=== PATIENT | female | born 1995 | race Caucasian/White ===

== ENCOUNTER 2019-12-18 19:22 | Outpatient (CLI) | payer BC ==
--- NOTE | 2019-12-19 11:45 | Ultrasound Report ---
Reason: SUPERVISION OF NORMAL , SECOND TRIMESTER Procedure Date: 12/18/2019 Accession Number: [id number] / [id number] Procedure: US - OB 14+ Weeks CPT Code: Final Report FULL RESULT: EXAM: LIMITED OBSTETRICAL ULTRASOUND EARLY SECOND TRIMESTER EXAM DATE: 12/18/2019 08:30 PM. CLINICAL HISTORY: SUPERVISION OF NORMAL , SECOND TRIMESTER. COMPARISON: None. TECHNIQUE: Real-time sonographic evaluation of the fetus performed by the sanding machine operator or tender. Multiple customer retention representative static images were saved for review. DATING: Established EGA 16 weeks 1 day with ANA 06/02/2020 based on LMP. EGA 16 weeks 4 days with ANA 05/30/2020 based on the current ultrasound. GENERAL EVALUATION Maldonado . Cardiac activity: 158 bpm. movement: Visualized. Presentation: Variable Placenta: Anterior position. No evidence for previa. Amniotic fluid: Normal. PAYTON 13.1. MVP 4 cm. BIOMETRY Bi-Parietal Diameter (BPD): 3.4 cm, 16 weeks 4 days Head Circumference (HC): 13.0 cm, 16 weeks 5 days Abdominal Circumference (AC): 11.0 cm, 16 weeks 6 days Femur Length (FL): 2.1 cm, 16 weeks 2 days Estimated Weight: 163 g, 73.7th percentile for 16 weeks 1 day. ANATOMY Grossly unremarkable visualized anatomy. MATERNAL STRUCTURES Uterus: Unremarkable. [place] contraction. Cervix: Long and closed. About 4 cm. Right ovary/adnexa: About 1.9 x 2.5 x 1.5 cm. Suboptimally visualized, but grossly negative. Left ovary/adnexa: 2.2 x 1.5 x 2.2 cm. Unremarkable. Free fluid: None. IMPRESSION: 1. Maldonado live intrauterine with gestational age 16 weeks 1 day based on LMP. 2. size is within expected limits for assigned dating. 3. Unremarkable study. Note: Detailed anatomic survey at 18-22 weeks is recommended for all fetuses evaluated prior to 18 weeks, as some structural abnormalities may be inapparent at earlier gestational ages. RADIA
== END 2019-12-18 19:23 | disposition home or self-care (01) ==
LOC: DI 19:22
PROVIDERS: ATTEND Obstetrics & Gynecology
DX: Z34.92 Encounter for supervision of normal pregnancy, unspecified, second trimester (principal)
CPT/HCPCS: 76805

== ENCOUNTER 2019-12-26 16:03 | Outpatient (CLI) | payer BC ==
[2019-12-26 16:25] LABS: BASOPHILS % (AUTO) 0.3 %; EOSINOPHILS # (AUTO) 0.1 10^3/uL (0.0-0.7); EOSINOPHILS % (AUTO) 0.8 %; HGB - HEMOGLOBIN 12.6 g/dL (12.0-16.0); LYMPHOCYTES # (AUTO) 2.5 10^3/uL (1.5-3.5); LYMPHOCYTES % (AUTO) 21.4 %; MEAN CORPUSCULAR HEMOGLOBIN 29.8 pg (27.0-31.0); MEAN CORPUSCULAR HGB CONC 32.3 g/dL (32.0-36.0); MEAN CORPUSCULAR VOLUME 92.2 fL (81.0-99.0); MEAN PLATELET VOLUME 10.6 fL (7.9-10.8); MONOCYTES # (AUTO) 0.7 10^3/uL (0.0-1.0); MONOCYTES % (AUTO) 5.6 %; NEUTROPHILS # (AUTO) 8.2 10^3/uL (1.5-6.6); NEUTROPHILS % (AUTO) 71.3 %; PLT - PLATELET COUNT 229 10^3/uL (130-450); RED BLOOD COUNT 4.23 10^6/uL (4.20-5.40); RED CELL DISTRIBUTION WIDTH 12.9 % (12.0-15.0); WHITE BLOOD COUNT 11.5 x10^3/uL (4.8-10.8)
[2019-12-27 11:34] LABS: HIV AG/AB 4TH GEN NON-REACTIVE (NON-REACTIVE)
[2019-12-27 11:47] LABS: HEPATITIS B SURFACE ANTIGEN NON-REACTIVE (NON-REACTIVE)
[2019-12-27 11:49] LABS: HEPATITIS C ANTIBODY NON-REACTIVE (NON-REACTIVE)
== END 2019-12-26 16:04 | disposition home or self-care (01) ==
LOC: LAB 16:03
PROVIDERS: ATTEND Obstetrics & Gynecology
DX: Z32.01 Encounter for pregnancy test, result positive (principal)
CPT/HCPCS: 36415; 81599; 85025; 86592; 86762; 86803; 86850; 86900; 86901; 87340; 87389

== ENCOUNTER 2020-01-15 13:25 | Outpatient (CLI) | payer BC ==
--- NOTE | 2020-01-15 15:23 | Ultrasound Report ---
Reason: SUPERVISION OF NORMAL , SECOND TRIMESTER Procedure Date: 01/15/2020 Accession Number: [id number] / [id number] Procedure: US - OB Detailed Eval CPT Code: Final Report FULL RESULT: EXAM: COMPLETE OBSTETRICAL ULTRASOUND EXAM DATE: 01/15/2020 02:50 PM. CLINICAL HISTORY: anatomic survey. COMPARISON: OB 14+ weeks 12/18/2019 7:36 PM. TECHNIQUE: Real-time sonographic evaluation of the fetus performed by the valve fitter. Multiple open claims representative static images were saved for review. DATING: Established EGA 20 weeks 4 days with ANA 05/30/2020 based on first ultrasound as working due date. EGA 20 weeks 3 days with ANA 05/31/2020 based on the current ultrasound. GENERAL EVALUATION Maldonado . Cardiac activity: 158 bpm. movement: Visualized. Presentation: Breech. Placenta: Anterior position. No evidence for previa. Umbilical cord: 3 vessel cord. Eccentric placental cord origin. Amniotic fluid: Subjectively normal. MVP 4.2 cm with PAYTON 13.5 cm. BIOMETRY Bi-Parietal Diameter (BPD): 4.7 cm, 20 weeks 1 day. Head Circumference (HC): 18.2 cm, 20 weeks 4 days. Abdominal Circumference (AC): 15.2 cm, 20 weeks 3 days. Femur Length (FL): 3.4 cm, 20 weeks 4 days. Estimated Weight: 357 g, 40th percentile for 20 weeks 4 days. ANATOMY The intracranial structures, profile, face/nose/lips, spine, 4 chamber heart and outflow tracts, stomach, abdominal wall and cord insertion, diaphragm, kidneys, bladder, and extremities were visualized and demonstrate no abnormality. MATERNAL STRUCTURES Uterus: Unremarkable. Cervix: Long and closed. Transabdominal length 4.2 cm. Right ovary/adnexa: Unremarkable. Left ovary/adnexa: Unremarkable. Free fluid: None. IMPRESSION: 1. Maldonado live intrauterine with gestational age 20 weeks 4 days based on first ultrasound as working due date. 2. Estimated weight is within expected limits for assigned dating. 3. Normal anatomic survey. No anatomic abnormalities are detected at this time. RADIA
== END 2020-01-15 13:26 | disposition home or self-care (01) ==
LOC: DI 13:25
PROVIDERS: ATTEND Nurse Practitioner Obstetrics & Gynecology
DX: Z34.92 Encounter for supervision of normal pregnancy, unspecified, second trimester (principal)
CPT/HCPCS: 76811

== ENCOUNTER 2020-03-08 07:00 | Outpatient (CLI) | payer OTHER ==
[2020-03-08 17:54] LABS: HGB - HEMOGLOBIN 11.4 g/dL (12.0-16.0); MEAN CORPUSCULAR HEMOGLOBIN 30.2 pg (27.0-31.0); MEAN CORPUSCULAR HGB CONC 31.9 g/dL (32.0-36.0); MEAN CORPUSCULAR VOLUME 94.4 fL (81.0-99.0); MEAN PLATELET VOLUME 11.2 fL (7.9-10.8); RED BLOOD COUNT 3.78 10^6/uL (4.20-5.40); RED CELL DISTRIBUTION WIDTH 12.8 % (12.0-15.0); WHITE BLOOD COUNT 13.5 x10^3/uL (4.8-10.8)
== END 2020-03-08 23:59 | disposition home or self-care (01) ==
LOC: LAB.WCP 07:00
PROVIDERS: ATTEND Obstetrics & Gynecology
DX: Z34.90 Encounter for supervision of normal pregnancy, unspecified, unspecified trimester (principal)
CPT/HCPCS: 36415; 82950; 85027; 86850

== ENCOUNTER 2021-04-07 08:00 | Outpatient (CLI) | payer MEDICAID, OTHER ==
[2021-04-07 20:49] LABS: BASOPHILS % (AUTO) 0.5 %; EOSINOPHILS # (AUTO) 0.1 10^3/uL (0.0-0.7); EOSINOPHILS % (AUTO) 1.4 %; HCT - HEMATOCRIT 45.7 % (37.0-47.0); HGB - HEMOGLOBIN 14.6 g/dL (12.0-16.0); LYMPHOCYTES # (AUTO) 2.6 10^3/uL (1.5-3.5); LYMPHOCYTES % (AUTO) 32.7 %; MEAN CORPUSCULAR HEMOGLOBIN 29.5 pg (27.0-31.0); MEAN CORPUSCULAR HGB CONC 31.9 g/dL (32.0-36.0); MEAN CORPUSCULAR VOLUME 92.3 fL (81.0-99.0); MEAN PLATELET VOLUME 11.2 fL (7.9-10.8); MONOCYTES # (AUTO) 0.5 10^3/uL (0.0-1.0); MONOCYTES % (AUTO) 6.8 %; NEUTROPHILS # (AUTO) 4.6 10^3/uL (1.5-6.6); NEUTROPHILS % (AUTO) 58.3 %; PLT - PLATELET COUNT 293 10^3/uL (130-450); RED BLOOD COUNT 4.95 10^6/uL (4.20-5.40); RED CELL DISTRIBUTION WIDTH 12.6 % (12.0-15.0); WHITE BLOOD COUNT 7.9 x10^3/uL (4.8-10.8)
[2021-04-07 21:05] LABS: ALBUMIN 4.9 g/dL (3.2-5.5); ALBUMIN/GLOBULIN RATIO 1.7 (1.0-2.2); BILIRUBIN,TOTAL 0.6 mg/dL (0.2-1.0); CALCIUM 9.3 mg/dL (8.5-10.3); CREATININE 0.5 mg/dL (0.4-1.0); POTASSIUM 3.6 mmol/L (3.5-5.0); TOTAL PROTEIN 7.8 g/dL (6.7-8.2)
== END 2021-04-07 23:59 | disposition home or self-care (01) ==
LOC: LAB.N 08:00
PROVIDERS: ATTEND Nurse Practitioner
DX: R42 Dizziness and giddiness (principal)
CPT/HCPCS: 36415; 80053; 85025

== ENCOUNTER 2021-04-09 20:35 | Emergency (ER) | payer MEDICAID ==
--- OUTSIDE RECORDS SUMMARY | 2021-04-09 21:06 | EXTERNAL MEDICAL SUMMARY RPT | Continuity of Care Document ---
:1995 Demographics Phone Unavailable Preferred Language Unknown Marital Status Unknown Mandaeism Affiliation Unknown Race Unknown Ethnic Group Unknown Author Organization [place] Address [address] [place] [address] Phone Allergies Encounters Medications Problems Results
[2021-04-09 21:18] LABS: BASOPHILS # (AUTO) 0.1 10^3/uL (0.0-0.1); BASOPHILS % (AUTO) 0.6 %; EOSINOPHILS # (AUTO) 0.3 10^3/uL (0.0-0.7); EOSINOPHILS % (AUTO) 3.8 %; HCT - HEMATOCRIT 42.3 % (37.0-47.0); HGB - HEMOGLOBIN 13.6 g/dL (12.0-16.0); LYMPHOCYTES # (AUTO) 2.3 10^3/uL (1.5-3.5); LYMPHOCYTES % (AUTO) 28.5 %; MEAN CORPUSCULAR HEMOGLOBIN 29.8 pg (27.0-31.0); MEAN CORPUSCULAR HGB CONC 32.2 g/dL (32.0-36.0); MEAN CORPUSCULAR VOLUME 92.6 fL (81.0-99.0); MEAN PLATELET VOLUME 10.6 fL (7.9-10.8); MONOCYTES # (AUTO) 0.6 10^3/uL (0.0-1.0); MONOCYTES % (AUTO) 7.4 %; NEUTROPHILS # (AUTO) 4.9 10^3/uL (1.5-6.6); NEUTROPHILS % (AUTO) 59.5 %; PLT - PLATELET COUNT 265 10^3/uL (130-450); RED BLOOD COUNT 4.57 10^6/uL (4.20-5.40); RED CELL DISTRIBUTION WIDTH 12.4 % (12.0-15.0); WHITE BLOOD COUNT 8.2 x10^3/uL (4.8-10.8)
--- NOTE | 2021-04-09 21:35 | ED Physician Documentation ---
History of Present Illness - Stated complaint Stated Complaint: DIZZY, SHAKY, COLD - Chief complaint Chief Complaint: Neuro - History obtained from History obtained from: Patient - History of Present Illness Timing: How many weeks ago (2-3) Pain level max: 0 Pain level now: 0 Improved by: no ameliorating factors Worsened by: no exacerbating factors - Additonal information Additional information: c/o 2-3 weeks of lightheadedness, dizziness. she was seen at a walk-in clinic 2 days ago, prescribed meclizine. She filled this today and had one dose without improvement. Today she also developed chills, feeling "shaky" (per patient), feeling cold and episodic generalized weakness that has, episodically, progressed to the point of needing to sit or lie down due to feeling like she was going to pass out Review of Systems Constitutional: reports: Chills. denies: Fever, Sweats Eyes: denies: Loss of vision, Decreased vision Cardiac: reports: Reviewed and negative Respiratory: reports: Reviewed and negative GI: denies: Abdominal Pain, Nausea, Vomiting : denies: Dysuria, Frequency, Now EGA Neurologic: reports: Generalized weakness (episodic). denies: Focal weakness, Numbness, Headache PD PAST MEDICAL HISTORY - Past Medical History Past Medical History: No - Present Medications Home Medications: Ambulatory Orders Medication Instructions Recorded Confirmed Meclizine [Antivert] 25 mg PO TID 04/09/21 04/09/21 - Allergies Allergies/Adverse Reactions: Allergies Allergy/AdvReac Type Severity Reaction Status Date / Time No Known Drug Allergies Allergy Verified 04/09/21 20:53 - Living Situation Living Arrangement: reports: At home PD ED PE NORMAL - Vitals Vital signs reviewed: Yes - General General: Alert and oriented X 3, No acute distress, Well developed/nourished - HEENT HEENT: PERRL, EOMI, Moist mucous membranes - Neck Neck: Supple, no meningeal sign - Cardiac Cardiac: RRR, No murmur - Respiratory Respiratory: No respiratory distress, Clear bilaterally - Derm Derm: Normal color, Warm and dry - Neuro Neuro: Alert and oriented X 3, waterproofing supervisor 2-12 intact, No motor deficit, No sensory deficit, Normal speech Eye Opening: Spontaneous Motor: Obeys Commands Verbal: Oriented GCS Score: 15 PD ED PE EXPANDED - Neck Neck: Bruit present (subtle bruit at base of right carotid artery, no palpable thrill) Results - Vitals Vitals: Oxygen O2 Source Room air - Labs Labs: Laboratory Tests 04/09/21 04/09/21 04/09/21 21:13 21:13 21:13 WBC 8.2 RBC 4.57 Hgb 13.6 Hct 42.3 MCV 92.6 MCH 29.8 MCHC 32.2 RDW 12.4 Plt Count 265 MPV 10.6 Neut # (Auto) 4.9 Lymph # (Auto) 2.3 [place] # (Auto) 0.6 Eos # (Auto) 0.3 Baso # (Auto) 0.1 Absolute Nucleated RBC 0.00 Nucleated RBC % 0.0 Sodium 136 Potassium 4.7 Chloride 103 Carbon Dioxide 25 Anion Gap 8.0 BUN 13 Creatinine 0.6 Estimated GFR (MDRD) 121 Glucose 120 H Calcium 9.2 Total Bilirubin 0.7 AST 24 ALT 16 Alkaline Phosphatase 58 Troponin I High Sens < 2.3 L Total Protein 7.0 Albumin 4.4 Globulin 2.6 Albumin/Globulin Ratio 1.7 Lipase 33 TSH Urine Color Urine Clarity Urine pH Ur Specific [place] Urine Protein Urine Glucose (UA) Urine Ketones Urine Occult Blood Urine Nitrite Urine Bilirubin Urine Urobilinogen Ur Leukocyte Esterase Ur Microscopic Review Urine Culture Comments Urine HCG, Qual 04/09/21 04/09/21 21:13 22:27 WBC RBC Hgb Hct MCV MCH MCHC RDW Plt Count MPV Neut # (Auto) Lymph # (Auto) [place] # (Auto) Eos # (Auto) Baso # (Auto) Absolute Nucleated RBC Nucleated RBC % Sodium Potassium Chloride Carbon Dioxide Anion Gap BUN Creatinine Estimated GFR (MDRD) Glucose Calcium Total Bilirubin AST ALT Alkaline Phosphatase Troponin I High Sens Total Protein Albumin Globulin Albumin/Globulin Ratio Lipase TSH 2.03 Urine Color YELLOW Urine Clarity CLEAR Urine pH 7.0 Ur Specific [place] 1.010 Urine Protein NEGATIVE Urine Glucose (UA) NEGATIVE Urine Ketones NEGATIVE Urine Occult Blood NEGATIVE Urine Nitrite NEGATIVE Urine Bilirubin NEGATIVE Urine Urobilinogen 0.2 (NORMAL) Ur Leukocyte Esterase NEGATIVE Ur Microscopic Review NOT INDICATED Urine Culture Comments NOT INDICATED Urine HCG, Qual NEGATIVE PD MEDICAL DECISION MAKING - ED course Complexity details: reviewed results, re-evaluated patient, considered differential, d/w patient ED course: 2-3 weeks of episodic lightheadedness, dizziness, with episodes today that are more suggestive of near-syncope with episodes of generalized weakness where she has to sit or lie down, then upon recovery of strength feels cold and "shaky" with chills. In ROS discussion, she says she had some right neck pain recently without injury which has resolved; she thinks she might have "slept wrong". This led to auscultation of carotid arteries and I detect a subtle bruit at base of right carotid artery. Thus I then ordered CTA head and neck; fortunately, these are unremarkable (incidental note of left thyroid nodule). Her symptoms are not strongly s/o vertigo. Given 1 liter NS IV fluids in ED and results d/w patient; she is comfortable with d/c Departure - Departure Disposition: 01 Home, Self Care Clinical Impression: Dizziness Condition: Good Instructions: ED Dizziness [facility]O Follow-Up: Rene Siu [Physician No Access] - Within 1 week Discharge Date/Time: 04/10/21 01:34
[2021-04-09] MEDS ORDERED: SODIUM CHLORIDE 0.9% 1,000 ML IV STA (21:36)
[2021-04-09 21:56] LABS: ALBUMIN 4.4 g/dL (3.2-5.5); ALBUMIN/GLOBULIN RATIO 1.7 (1.0-2.2); BILIRUBIN,TOTAL 0.7 mg/dL (0.2-1.0); CALCIUM 9.2 mg/dL (8.5-10.3); CREATININE 0.6 mg/dL (0.4-1.0); POTASSIUM 4.7 mmol/L (3.5-5.0)
[2021-04-09] MEDS ORDERED: IOVERSOL 320 100 ML VIAL IVP ONE ×2 (22:40→23:20)
[2021-04-09 22:49] LABS: BILIRUBIN,URINE NEGATIVE (NEGATIVE); GLUCOSE, URINE (UA) NEGATIVE (NEGATIVE); KETONES,URINE (UA) NEGATIVE (NEGATIVE); LEUKOCYTE ESTERASE, URINE NEGATIVE (NEGATIVE); NITRITE,URINE NEGATIVE (NEGATIVE); OCCULT BLOOD,URINE NEGATIVE (NEGATIVE); PROTEIN,URINE NEGATIVE (NEGATIVE); UROBILINOGEN,URINE 0.2 (NORMAL) E.U./dL (NORMAL)
[2021-04-09 22:55] LABS: CLARITY,URINE CLEAR (CLEAR); HCG UR QUAL NEGATIVE
[2021-04-10 01:27] VITALS: BP 107/70
--- NOTE | 2021-04-10 08:00 | CT Report ---
PROCEDURE: ANGIO HEAD W/WO INDICATIONS: dizziness, right sided bruit CONTRAST: IV CONTRAST: Optiray 320 ml: 100 PO CONTRAST: *NO PO CONTRAST TECHNIQUE: Precontrast 4.5 mm thick angled axial sections acquired from the foramen magnum to the vertex. Afte r the administration of intravenous contrast, 1 mm thick sections acquired through the [place] of [place] is. Postcontrast 4.5 mm thick sections then re-acquired from the foramen magnum to the vertex. 3-di mensional dawopqj-qibgzkzzl-wmoucbrjjy (MIP) and/or volume rendering reformats were acquired of the c entral intracranial vasculature. For radiation dose reduction, the following was used: automated ex posure control, adjustment of mA and/or kV according to patient size. COMPARISON: Correlation is made with the accompanying neck CT angiogram, 04/09/2021. FINDINGS: Image quality: There is streak artifact seen through the skull base. Angiogram images are limited b y bolus timing with venous contamination. Anterior circulation: Intracranial internal carotid arteries are normal in size and flow. The flow within the paired anterior cerebral arteries is normal and symmetric. The flow within the middle cer ebral arteries is normal and symmetric. The anterior communicating artery is seen. No aneurysms are seen. Posterior circulation: Visualized portions of the vertebral arteries demonstrate normal caliber, and join to form a normal appearing basilar artery. Flow within the posterior cerebral arteries is norm al and symmetric. No aneurysms are seen. CSF spaces: Ventricles are normal in size and shape. Basal cisterns are patent. No extra-axial flu id collections. Brain: No midline shift. No intracranial bleeds or masses. Yu-white matter interface appears int act. Skull and face: Calvarium and facial bones appear intact, without suspicious lesions. Sinuses: Visualized sinuses and mastoids are clear. There is partial visualization of a left-sided estelle bullosa. IMPRESSION: No significant intracranial abnormality is seen. No intracranial hemorrhage is seen. No significant intracranial arterial abnormalities are seen. No masses or abnormal enhancement can be seen. Note: No significant discrepancy from the preliminary report. Reviewed by: Raudel Fuentes MD on 04/10/2021 6:58 AM MERLE Approved by: Raudel Fuentes MD on 04/10/2021 6:58 AM [place] Station ID: [id number]
--- NOTE | 2021-04-10 08:02 | CT Report ---
PROCEDURE: ANGIO NECK W INDICATIONS: dizziness, right carotid bruit CONTRAST: IV CONTRAST: Optiray 320 ml: 100 PO CONTRAST: *NO PO CONTRAST TECHNIQUE: After the administration of intravenous contrast, 1.5 mm axial sections acquired from the aortic arch to the [place] of [place]. Coronal 3-D maximum intensity projection (MIP) and/or volume rendering ref ormats were then performed. For radiation dose reduction, the following was used: automated exposur e control, adjustment of mA and/or kV according to patient size. COMPARISON: Correlation is made with head CT angiogram, 04/09/2021. FINDINGS: Image quality: Excellent. Carotid system: The great vessels demonstrate a conventional anatomy as they arise from the aortic a rch. The origins of the common carotid arteries appear patent. The common carotid arteries demonstr ate normal calibers and courses. The bifurcation regions appear normal bilaterally. The internal ca rotid arteries demonstrate normal caliber and course. Posterior circulation: The origins of the vertebral arteries appear patent. The more superior porti ons of the vertebral arteries demonstrate normal course and caliber. They join to form a normal appe aring basilar artery. Soft tissues: Visualized neck soft tissues demonstrate no suspicious abnormalities. The thyroid is normal in size and there our small nodules seen within both sides of the thyroid, including a 7 mm no dule on the left. Bones: No suspicious bony lesions. Visualized cervical spine appears normally aligned. IMPRESSION: No hemodynamically significant stenosis can be seen within the arteries of the neck. No findings of dissection are seen. Note: No significant discrepancy from the preliminary report. Incidental note is made of: 7 mm left thyroid nodule, no specific follow-up recommended The estimate of stenosis included in the report of the imaging study was calculated using the NASCET method Reviewed by: Raudel Fuentes MD on 04/10/2021 7:01 AM MERLE Approved by: Raudel Fuentes MD on 04/10/2021 7:01 AM MERLE Station ID: [id number]
== END 2021-04-10 01:34 | disposition home or self-care (01) ==
LOC: ED 20:35
DX: R42 Dizziness and giddiness (principal); R53.1 Weakness; E04.1 Nontoxic single thyroid nodule
CPT/HCPCS: 36415; 70496; 70498; 80053; 81003; 81025; 83690; 84443; 84484; 85025; 93005; 96360; 99284; Q9967; 81001; 87086